=== PATIENT | female | born 1990 | race African-American/Black ===

== ENCOUNTER 2017-04-19 15:56 | Emergency (ER) | payer BC | END 2017-04-19 19:11 | disposition home or self-care (01) | LOC: CED 15:56 → CFTX 15:56 | DX: S29.012A Strain of muscle and tendon of back wall of thorax, initial encounter (principal); V43.52XA Car driver injured in collision with other type car in traffic accident, initial encounter; Y92.410 Unspecified street and highway as the place of occurrence of the external cause | CPT/HCPCS: 84703; 96372; 99283; J1885 ==